=== PATIENT | female | born 1935 | race Caucasian/White ===

== ENCOUNTER → 2017-06-03 | Outpatient (CLI) | payer OTHER ==
[~2017-06-03] MED LIST: ALEVE; ARIXTRA2.5 MG/0.1 SQ; CALTRATE PLUS T1 TAB; CELEXA PO; COREG PO; GLUCOSAMINE CHON; IBUPROFEN PO; KCL PO; LASIX PO; LEXAPRO PO; LISINOPRIL PO; LISINOPRIL5 MG PO; NORCO 5/325 TAB1 TAB PO; PERCOCET5/325 PO; PRILOSEC PO; TUMS
--- NOTE | ~2017-06-03 | BD1 ---
[facility] A Service of [facility] & [facility] RADIOLOGY TEXT RESULTS PATIENT: ABHIJEET KLEIN LOCATION: [facility] : 37 UNIT #: [id number] AGE: [address]: CINDI MIDDLETON APRN SEX: F ORDER DR: [id number] [facility] [address] [place], [place] [address] [id number] O MR#: [id number] Acc #: [id number] NAME: ABHIJEET KLEIN : 1935 SEX: F STUDY DATE/TIME: 06/03/2017 11:32 UNIT: [facility] ROOM: STUDY DESCRIPTION: BD Dexa Bone Dens 1+ Site Attending Physician: Cindi Middleton M.D. Referring Physician: Cindi Middleton M.D. Ordering Physician: Cindi Middleton M.D. Primary Care Physician: Cindi Middleton M.D. MEDICAL IMAGING REPORT This report is preliminary unless electronic signature is present EXAM DXA scan, 06/03/2017. HISTORY Status post menopause with no hormone replacement therapy. Osteopenia. Hysterectomy at age 56 with removal of both ovaries. Hypertension with blood pressure medication for 2 years. FINDINGS Bone mineral density in the lumbar spine from L1-L4 was 1.005 g/cm2 which is 0.4 standard deviations below the mean when compared to the young adult reference population which is within the range of normal. This is 2.3 standard deviations above the mean when compared to the age-matched population. Compared with 05/23/2015, there has been a decrease in bone mineral density in the lumbar spine of 5.2%. Bone mineral density in the left femoral neck was 0.568 g/cm2 which is 2.5 standard deviations below the mean when compared to the young adult reference population which is characteristic of osteoporosis. This is 0.2 standard deviations below the mean when compared to the age-matched population. Compared with 05/23/2015, there has been an increase in bone mineral density in the left hip of 8.8%. IMPRESSION Bone mineral density in the lumbar spine within the range of normal and within the left hip characteristic of osteoporosis. Compared with 05/23/2015, there has been a decrease in bone mineral density in the lumbar spine and an increase in bone mineral density in the left hip. Dictated by... Juan Ramon Jaimes M.D. [facility] A Service of [facility] RADIOLOGY TEXT RESULTS PATIENT: ABHIJEET KLEIN LOCATION: [facility] : 37 UNIT #: [id number] AGE: [address]: CINDI MIDDLETON APRN SEX: F ORDER DR: THIS IS AN ELECTRONICALLY VERIFIED REPORT Juan Ramon Jaimes M.D. at 06/04/2017 7:32 AM COREY/josy TD: 06/03/2017 14:31 JOB #: [id number] MEDICAL IMAGING REPORT Page 1 of 1 COPY
== END | disposition home or self-care (01) ==
LOC: CWCC 11:16
DX: Z13.820 Encounter for screening for osteoporosis (principal); Z78.0 Asymptomatic menopausal state; M81.0 Age-related osteoporosis without current pathological fracture
CPT/HCPCS: 77080